=== PATIENT | male | born 1990 | race Caucasian/White ===

== ENCOUNTER 2018-02-27 02:46 | Emergency (ER) | payer OTHER ==
[~2018-02-27] VITALS: Ht 170.2 cm; Wt 72.6 kg
--- NOTE | ~2018-02-27 | EKG ---
[place] [address] [facility] [place] [address] ELECTROCARDIOGRAM REPORT Name: KECIA DE LA PAZ Room #: DEP PADMINI Joseph#: [id number] Admission: 02/27/18 Attend Phys: Discharge: 02/27/18 Date of : [birth year] Report #: [id number] THIS REPORT FOR: //name// [facility] ED Test Date: 2018-02-27 Test Time: 03:10:17 Pat Name: KECIA DE LA PAZ Department: Room: Gender: Hair Colorist: ALYSE : 1990 Requested By: Rizwan Daigle Order Number: [id number] MD: Nate Jiang Measurements Intervals [place] Rate: 57 P: 53 IN: 169 QRS: 74 QRSD: 110 T: 21 QT: 445 QTc: 434 Interpretive Statements Sinus rhythm Normal tracing No previous ECG available for comparison Electronically Signed On 02-28-2018 8:36:28 CDT by Nate Jiang [email or web address] <ELECTRONICALLY SIGNED> By: Nate Jiang MD, [facility] 02/28/18 0836 0310 0310 Nate Jiang MD, FACC /EPI
[2018-02-27 03:19] LABS: ABSOLUTE NEUTROPHILS 4.3 thou/uL (1.4-8.2); EOSINOPHILS 1.9 % (0.0-3.0); HEMATOCRIT 38.3 % (42.0-52.0); HEMOGLOBIN 13.8 gm/dL (14.0-18.0); LYMPHOCYTES 41.1 % (24.0-44.0); MCH 30.6 pg (26.0-34.0); MONOCYTES 7.9 % (1.0-8.0); PLATELET COUNT 321 thou/uL (150-400); POLYS 48.1 % (36.0-66.0); RBC 4.51 mil/uL (4.50-6.00); RDW 13.2 % (10.5-14.5)
[2018-02-27 03:25] LABS: ANION GAP 11 mmol/L (7-16); BUN 19 mg/dL (7-18); CALCIUM 8.6 mg/dL (8.5-10.1); CHLORIDE 101 mmol/L (98-107); CO2 26 mmol/L (21-32); CREATININE 1.3 mg/dL (0.7-1.3); GLUCOSE 124 mg/dL (74-106); POTASSIUM 3.1 mmol/L (3.5-5.1); SODIUM 138 mmol/L (136-145)
[2018-02-27 03:34] LABS: TROPONIN-I <0.06 ng/mL (<0.06)
[2018-02-27 06:02] LABS: AMP/METHAMP Negative (Negative); BARBITURATES Negative (Negative); BENZODIAZEPINES Negative (Negative); COCAINE Negative (Negative); METHADONE Negative (Negative); OPIATES Negative (Negative); PCP Negative (Negative)
[2018-02-27 06:25] VITALS: BP 105/56
== END 2018-02-27 06:33 | disposition home or self-care (01) ==
LOC: ER 02:46
PROVIDERS: Emergency Medicine
DX: R55 Syncope and collapse (principal)